=== PATIENT | male | born 1950 | race Caucasian/White ===

== ENCOUNTER 2019-03-01 10:44 | Inpatient (IN) | payer OTHER ==
[~2019-03-01] VITALS: Ht 170.2 cm; Wt 53.9 kg
[~2019-03-01 10:44] MED LIST: ASCO500 PO; CLARITIN10 MG PO; HEARTBURN RELI150 M1 PO; MONT10T PO; Monodox100 MG PO; Ventolin/Prove6.7 GM INH
[2019-03-01 11:01] LABS: BASOPHILS ABSOLUTE AUTO 0.09 K/mm3 (0.00-0.23); BASOPHILS PERCENT AUTO 1 % (0-2); EOSINOPHILS PERCENT AUTO 12 % (0-6); Hematocrit 45.1 % (37.0-53.0); Hemoglobin 14.1 g/dL (13.5-17.5); IMMATURE GRAN ABSOLUTE AUTO 0.07 K/mm3 (0.00-0.10); IMMATURE GRAN PERCENT AUTO 1 % (0-1); LYMPHOCYTES ABSOLUTE AUTO 2.62 K/mm3 (0.84-5.20); LYMPHOCYTES PERCENT AUTO 25 % (21-46); MONOCYTES PERCENT AUTO 8 % (4-13); Mean Corpuscular HGB 32.4 pg (26.0-34.0); Mean Corpuscular HGB Conc 31.3 g/dL (31.5-36.5); Mean Corpuscular Volume 104 fL (80-100); Mean Platelet Volume 8.4 fL (9.1-12.4); NEUTROPHILS ABSOLUTE AUTO 5.79 K/mm3 (1.96-9.15); NEUTROPHILS PERCENT AUTO 54 % (41-73); Platelet Count 290 K/mm3 (150-400); RDW Coefficient Variation 12.8 % (11.7-14.2); RDW Standard Deviation 49.2 fL (35.1-46.3); Red Blood Cell Count 4.35 M/mm3 (4.30-5.90); White Blood Cell Count 10.67 K/mm3 (4.00-11.30)
[2019-03-01 11:11] LABS: Bicarbonate Venous 17.5 mmol/L (24.0-30.0); PCO2 Venous 61.6 mmHg (38-42); PO2 Venous 216 mmHg (38-42); pH Blood Venous 7.14 (7.34-7.37)
[2019-03-01 11:29] LABS: Alanine Aminotransfer (ALT/SGP 31 U/L (12-78); Albumin, Blood 3.7 g/dL (3.4-5.0); Albumin/Globulin Ratio 1.1 (0.8-1.8); Alk Phos 75 U/L (50-136); Anion Gap 11 mmol/L (6-16); Aspartate Aminotrans (AST/SGOT 32 U/L (12-37); Bilirubin, Total 0.6 mg/dL (0.1-1.0); Blood Urea Nitrogen 16 mg/dL (8-24); Bun/Creatinine Ratio 17.3 (12.0-20.0); CO2, Blood 22 mmol/L (21-32); Calcium, Blood 8.6 mg/dL (8.5-10.1); Chloride, Blood 107 mmol/L (98-108); Creatinine, Blood 0.92 mg/dL (0.60-1.20); Globulin, Blood 3.4 g/dL (2.2-4.0); Glomerular Filtration Rate >60 (60-); Glucose, Blood 219 mg/dL (70-99); Potassium, Blood 4.8 mmol/L (3.5-5.5); Sodium, Blood 140 mmol/L (136-145); Total Protein, Blood 7.1 g/dL (6.4-8.2); Troponin I <0.015 ng/mL (0.000-0.040)
[2019-03-01] MEDS ORDERED: BUDE6HFA INH (12:31)
[2019-03-01] MEDS ORDERED: Flonase 0.05% N16 GM (12:33)
[2019-03-01] MEDS ORDERED: MONT10T PO (12:35)
[2019-03-01] MEDS ORDERED: Loratadine10 MG PO (12:35)
[2019-03-01] MEDS ORDERED: THERA1 EACH PO (12:36)
[2019-03-01] MEDS ORDERED: OLAN2.5 PO (12:36)
[2019-03-01] MEDS ORDERED: PARO20 PO (12:38)
[2019-03-01] MEDS ORDERED: Zantac150 MG PO (12:40)
--- NOTE | 2019-03-01 14:55 | NUR ---
ADMIT TO PCU, ROOM 12, VIA GUERNEY FROM ER. PATIENT ABLE TO SLIDE SELF FROM CART TO BED. PLACED ON BIPAP MACHINE (08/11, RATE 12 AND FIO2 30%); BIOX MID TO HIGH 90'S. OXYGEN AT 3.5L/MIN WHEN OFF BIPAP. VSS AND NO ACUTE PAIN. ORIENTED AND COOPERATIVE. PATIENT WITH CONCERNS FOR SPOUSE; HE IS HER PRIMARY CG AND WORRIED FOR HER BEING ALONE. SPOUSE ABLE TO USE PHONE AND MENTALLY SAAVY; RN SPOKE TO HER; HAS PHYSICAL DISABILITIES. SOCIAL SERVICE REFERRAL AND PALLIATIVE CARE CONSULT BY ADMITTING PHYSICIAN. PATIENTS LUNGS DIMINISHED T/O; DRY, NPC. VOIDING SMALL AMOUNT OF MEGHA COLORED URINE IN URINAL. HUNGARY AND WANTING FOOD; WATER AT BEDSIDE; ENCOURAGED NEED TO STAY ON BIPAP TIL DINNER AND THEN CAN BE OFF BIPAP; V/U.
--- NOTE | 2019-03-01 17:00 | NUR ---
DR. JIMENEZ CONSULTING; EVAL. PATIENT; LONG DISCUSSION WITH PATIENT AND FAMILY RE: HX, POC ETC.; SEE ORDERS.
--- NOTE | 2019-03-01 18:00 | NUR ---
SUMMARY: PATIENT TOLERATING DIET WELL; GOOD APPETITE. FEELING BETTER THIS EVENING; STATES HIS 'S PAID CG IS WITH HER AND WILL STAY THE NIGHT AND TOMORROW. REMAINS WITH NS INFUSING AT 75ML/HR. VOIDING SMALL AMOUNTS; 285ML/TOTAL FOR 2 VOIDS. MONITOR REMAINS NSR WITH RATE 80'S TO LOW 100'S; VSS. OVERALL STATUS IMPROVING. WILL REPORT TO ONCOMING RN.
--- NOTE | 2019-03-02 00:37 | NUR ---
RESPIRATORY STATUS 0030 PT REQUESTING TO GO TO BATHROOM. PT HAD BEEN TOLERATING BEING OFF BIPAP SINCE 190. PT ON NCO2. PT TO BATHROOM WITH NURSE ASSIST. PT STATES FEELING SOB AGAIN. PT ESCORTED BACK TO BED, SPO2 READS 75%. PT EXTREMELY DYSPNEIC. BIPAP PLACED ON PT. REMIANS ON SETTINGS /, FIO2 30%, RATE 12. PT SPO2 STILL BELOW 80%. FIO2 TITRATED TO 40%. RR >30. PT SLOWLY OVER THE COURSE OF 15 MINUTES RETURNS TO SPO2 >92%. RR 20'S. FIO2 TITRATED BACK DOWN TO 30%. PT STATES FEELING BETTER NOW. PT STATES HE UNDERSTANDS THE HNEED FOR BIPAP AND WILL TRY TO KEEP IT ON FOR THE REST OF THE NIGHT.
[2019-03-02 04:17] LABS: BASOPHILS ABSOLUTE AUTO 0.01 K/mm3 (0.00-0.23); BASOPHILS PERCENT AUTO 0 % (0-2); EOSINOPHILS PERCENT AUTO 0 % (0-6); Hematocrit 39.1 % (37.0-53.0); Hemoglobin 12.7 g/dL (13.5-17.5); IMMATURE GRAN ABSOLUTE AUTO 0.03 K/mm3 (0.00-0.10); IMMATURE GRAN PERCENT AUTO 0 % (0-1); LYMPHOCYTES ABSOLUTE AUTO 0.43 K/mm3 (0.84-5.20); LYMPHOCYTES PERCENT AUTO 5 % (21-46); MONOCYTES ABSOLUTE AUTO 0.09 K/mm3 (0.16-1.47); MONOCYTES PERCENT AUTO 1 % (4-13); Mean Corpuscular HGB 32.1 pg (26.0-34.0); Mean Corpuscular HGB Conc 32.5 g/dL (31.5-36.5); Mean Platelet Volume 8.6 fL (9.1-12.4); NEUTROPHILS ABSOLUTE AUTO 7.42 K/mm3 (1.96-9.15); NEUTROPHILS PERCENT AUTO 93 % (41-73); Platelet Count 227 K/mm3 (150-400); RDW Coefficient Variation 12.6 % (11.7-14.2); RDW Standard Deviation 45.5 fL (35.1-46.3); Red Blood Cell Count 3.96 M/mm3 (4.30-5.90); White Blood Cell Count 7.98 K/mm3 (4.00-11.30)
[2019-03-02 04:20] LABS: Mean Corpuscular Volume 99 fL (80-100)
[2019-03-02 04:31] LABS: Anion Gap 4 mmol/L (6-16); Blood Urea Nitrogen 35 mg/dL (8-24); Bun/Creatinine Ratio 37.6 (12.0-20.0); CO2, Blood 28 mmol/L (21-32); Calcium, Blood 8.3 mg/dL (8.5-10.1); Chloride, Blood 108 mmol/L (98-108); Creatinine, Blood 0.93 mg/dL (0.60-1.20); Glomerular Filtration Rate >60 (60-); Glucose, Blood 138 mg/dL (70-99); Potassium, Blood 4.6 mmol/L (3.5-5.5); Sodium, Blood 140 mmol/L (136-145)
--- NOTE | 2019-03-02 05:42 | NUR ---
END OF SHIFT SUMMARY PT ASKED TO HAVE BIPAP OFF AT BEGINNING OF SHIFT, NC 2L PLACED. PT TOLERATING WELL AT THAT TIME. UPON GETTING UP TO GO TO BATHROOM WITH NURSE, PT EXTREMELY DYSPNEIC/HYPOXIC, SEE EARLEIR NOTE. PT PLACED ON BIPAP AND HAS REMAINED ON IT SINCE AND TOLERATED WELL. SETTINGS /, FIO2 30%. SPO2 >94%. PT TO RECEIVE AM ABG TO DETERMINE RESPIRATORY STATUS. PT HAS HAD NO ACUTE CHANGES THIS SHIFT EXCEPT PERIOD OF DYSPNEA. VSS. CALL LIGHT WOTHIN REACH, USES IT APPROPRIATELY. WILL CONTINUE TO MONITOR PT UNTIL SHIFT CHANGE.
[2019-03-02 07:49] LABS: PCO2 Arterial 42.4 mmHg (35-45); PO2 Arterial 74.4 mmHg (80-100); pH Blood Arterial 7.38 (7.35-7.45)
--- NOTE | 2019-03-02 13:33 | NUR ---
Patient is lying in bed and alert. Patient fatoumata shares about his struggles of living on [address], about his 's recent foot surgery and about the concerns he has about going to a rehab facility. Patient explained that he and his Lucita are in an apartment now. Patient is hoping to go to the [facility] from upon discharge. I listen empathically and provide companionship, pastoral counselor aid and prayer (after learning about patient's belief system). Patient responded well and showed signs of reduced stress.
--- NOTE | 2019-03-02 13:41 | NUR ---
Patient is lying in bed recovering from angiogram. Patient tells me he recieved a stent. I facilitated a life review and learned of the variety of places he and his , Zenaida, have lived. I also explored their scientology beliefs which patient would describe as personal and non-conventional. I learned that he finds his deepest inspiration from his . I listened empathically, provided emotional support, companionship and prayer. Patient dmitriy Estevez responded well and showed signs of an elevated mood.
--- NOTE | 2019-03-02 18:17 | NUR ---
SHIFT SUMMARY PT A&Ox4, ANXIOUS AND COOPERATIVE WITH CARE. 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 PT RESTING IN BED DURING SHIFT, UP TO BATHROOM WITH 1 PERSON ASSIST. SOB WITH EXERTION AND AT REST AT TIMES, ON L O2 VIA NC AND BIPAP WHILE SLEEPING, LS EXP WHE, DIM BASES. PT DENIES NAUSEA, SPOUSE CONCERNED REGARD DECREASED ORAL INTAKE, PT DENIES DECREASED APPETEITE. PT REPORTS HEADACHE THIS AFTERNOON, NOTIFIED DR JUAN, NEW ORDERS FOR ASPIRIN 325MG PO Q6H PRN FOR HEADACHE, MEDICARTED X1. PT RECEIVED IV STEROIDS THIS AM. VSS. NO OTHER ACUTE CHANGES NOTED DURING SHIFT. WILL CONTINUE TO MONITOR UNTIL REPORT GIVEN TO ONCOMING RN.
--- NOTE | 2019-03-03 05:04 | NUR ---
SHIFT SUMMARY: PT IS ALERT AND ORIENTED. PT IS CALM AND COOPERATIVE WITH CARE. PT CALLS APPROPRIATELY. PT IS A ONE ASSIST, NOT OUT OF BED OVERNIGHT, USING THE URINAL IN BED INDEPENDENTLY. PT DENIES PAIN, NAUSEA, AND VOMITING. PT REPORTS SOB UPON EXERTION, SATS > 90% ON 1 L O2. PT SLEPT MUCH OF THE NIGHT WHEN NOT DISTURBED. NO ACUTE CHANGES OR COMPLICATIONS THIS SHIFT. BED IN LOW POSITION, CALL LIGHT WITHIN REACH. WILL CONTINUE TO MONITOR.
--- NOTE | 2019-03-03 09:42 | NUR ---
RT TITRATED PT TO RA. OXIMETER ALARM GOING OFF, PT 80% ON RA, PLACE 1L O2 AND ENCOURAGED PT TO TAKE SLOW DEEP BREATHS WITH PURSED LIP BREATHING, PT 90% ON 1L. WILL CONTINUE TO MONITOR.
--- NOTE | 2019-03-03 19:23 | NUR ---
SHIFT SUMMARY PT A&Ox4, FORGETFUL AT TIMES. ANXIOUS AT TIMES, BUT COOPERATIVE WITH CARE. PT RESTING IN BED DURING SHIFT. 1 PERSON ASSIST TO BATHROOM. PT REPORTS HEADACHE, MEDICATED X1 WITH ASPIRIN. PT SOB WITH EXERTION, >90% ON 1L O2 VIA NC. ATTEMTPED TO TITRATE PT TO RA TWICE DURING SHIFT, PT O2 SATURATION WOULD DESAT TO 85-86% AND WOULD RECOVER WITH BREATHING AND COUGHING. PT DENIES NAUSEA DURING SHIFT. DECREASED APPETEITE NOTED, PT STATES HE DOES NOT LIKE THE FOOD. VSS. NO OTHER ACUTE CHANGES NOTED DURING SHIFT. REPORT GIVEN TO ONCOMING RN.
--- NOTE | 2019-03-03 22:49 | NUR ---
TRANSFER NOTE: PATIENT PLEASENT AND COOPERATIVE THROUGHOUT THE NIGHT. PATIENT APPEARED TO HAVE NAPPED ON AND OFF THROUGHOUT THE NIGHT SO FAR. IV FLUIDS RUNNING PER ORDERS. REPORT GIVEN TO LEENA RUIZ. PATIENT TRANSFERED TO ROOM 324 AT THIS TIME VIA WHEELCHAIR. ALL BELONGINGS GATHERED AND SENT WITH PATIENT. KEITH NOTIFIED OF ROOM CHANGE.
--- NOTE | 2019-03-04 04:34 | NUR ---
SHIFT SUMMARY PT ARRIVED TO ROOM IN NO DISTRESS. PT HAS BEEN OFF O2 SINCE ARRIVAL AT HIS REQUEST. PT HAD NO SIGNIFICANT ISSUES WITH DYSPNEA. PT DID GET SLIGHTLY SOB AFTER GETTING UP TO USE BATHROOM. SOB RESOLVED WHEN HE LAID IN BED. PT HAD NO COMPLAINTS NOTED. PT HAS BEEN SLEEPING WELL T/O SHIFT. PT CURRENTLY AWAKE AND BREATHING EASY. CALL LIGHT IN REACH AND BED ALARM ON PT IS SLIGHTLY CONFUSED UPON WAKING UP.
[2019-03-04 04:44] LABS: PCO2 Arterial 47.4 mmHg (35-45); PO2 Arterial 55.1 mmHg (80-100); pH Blood Arterial 7.38 (7.35-7.45)
[2019-03-04 05:29] LABS: Albumin, Blood 2.8 g/dL (3.4-5.0); Anion Gap 3 mmol/L (6-16); Blood Urea Nitrogen 30 mg/dL (8-24); CO2, Blood 29 mmol/L (21-32); Calcium, Blood 8.2 mg/dL (8.5-10.1); Chloride, Blood 112 mmol/L (98-108); Creatinine, Blood 0.88 mg/dL (0.60-1.20); Glomerular Filtration Rate >60 (60-); Glucose, Blood 88 mg/dL (70-99); Phosphorus, Blood 2.7 mg/dL (2.5-4.9); Potassium, Blood 4.3 mmol/L (3.5-5.5); Sodium, Blood 144 mmol/L (136-145)
--- NOTE | 2019-03-04 18:38 | NUR ---
SHIFT SUMMARY PATIENT HAS BEEN ON ROOM AIR MUCH OF THE DAY. HE REQUIRED 1L O2 THIS AFTERNOON. HOPEFUL TO DISCHARGE HOME WITHOUT OXYGEN. FAMILY ANXIOUS REGARDING DISCHARGE PLAN AND POTENTIAL NEEDS FOR CAREGIVERS.
--- NOTE | 2019-03-05 04:06 | NUR ---
SHIFT SUMMARY PT HAD NO ISSUES WITH SOB OR REQUIRED O2 USE T/O SHIFT. PT IS EAGER TO GO HOME. PT IS CONCERNED ABOUT WELL BEING OF HIS . PT HAS SLEPT WELL T/O SHIFT. PT CURRENTLY SLEEPING AND BREATHING EASY. CALL LIGHT IN REACH.
[2019-03-05 05:33] LABS: Albumin, Blood 2.9 g/dL (3.4-5.0); Anion Gap 4 mmol/L (6-16); Blood Urea Nitrogen 31 mg/dL (8-24); Bun/Creatinine Ratio 41.7 (12.0-20.0); CO2, Blood 28 mmol/L (21-32); Calcium, Blood 8.3 mg/dL (8.5-10.1); Chloride, Blood 109 mmol/L (98-108); Creatinine, Blood 0.74 mg/dL (0.60-1.20); Glomerular Filtration Rate >60 (60-); Glucose, Blood 87 mg/dL (70-99); Phosphorus, Blood 3.1 mg/dL (2.5-4.9); Potassium, Blood 3.9 mmol/L (3.5-5.5); Sodium, Blood 141 mmol/L (136-145)
[2019-03-05] MEDS ORDERED: PRED10 PO (13:01)
--- NOTE | 2019-03-05 14:15 | NUR ---
THIS RN CALLED [facility] WHEN PATIENT DISCHARGED FROM HOSPITAL. [facility] HAD DELIVERED A TANK FOR TRANSPORT TO HOME. CONCERN OF PATIENT FORGETTING TO CALL FOR CONCENTRATOR. [facility] AWARE OF DEPART TIME TO HOME. CHRISSY FROM [facility] WILL BE GOING TO [facility] TO SET UP CONCENTRATOR.
--- NOTE | 2019-03-05 18:24 | NUR ---
DISCHARGE SUMMARY PATIENT A&O X4, INDEPENDENT IN THE ROOM. DENIES ANY PAIN OR NAUSEA. C/O SOB WITH ACTIVTY. ON RA AT REST. HOME O2 EVAL TODAY, PATIENT REQUIRES 4L O2 WITH ACTIVITY. [facility] BROUGHT O2 IN FOR DISCHARGE TO HOME. ALL DISCHARGE INSTRUCTIONS REVIEWED WITH THE PATIENT. PATIENT EDUCATION PROVIDED. IV D/C, WNL. MEDICATIONS FAXED TO [facility]. PATIENT IS TO FOLLOW UP WITH THE [facility] Wednesday03/05/19. HEAD BUYER TOBACCO ESCORTED PATIENT OUT, ALL BELONGINGS IN HAND.
== END 2019-03-05 13:57 | disposition home or self-care (01) | DRG 189 ==
LOC: ER 10:44 → ERHOLD 12:23 → PCU 12:23 → MEDS 03-03 22:52 → ENPENDDIS 03-05 11:03 → MEDS 03-05 13:57
PROVIDERS: Emergency Medicine; Internal Medicine; Internal Medicine Critical Care Medicine; ADMIT Internal Medicine
PROC: 5A09357 Assistance with Respiratory Ventilation, Less than 24 Consecutive Hours, Continuous Positive Airway Pressure (ICD-10-PCS; principal; 2019-03-01)
DX: J96.01 Acute respiratory failure with hypoxia (principal); Z77.090 Contact with and (suspected) exposure to asbestos; E78.5 Hyperlipidemia, unspecified; Z98.52 Vasectomy status; F17.210 Nicotine dependence, cigarettes, uncomplicated; R73.9 Hyperglycemia, unspecified; D75.89 Other specified diseases of blood and blood-forming organs; F41.9 Anxiety disorder, unspecified; J43.9 Emphysema, unspecified; F43.10 Post-traumatic stress disorder, unspecified; Z99.81 Dependence on supplemental oxygen; J96.02 Acute respiratory failure with hypercapnia
CPT/HCPCS: 36415; 36600; 71045; 80048; 80053; 80069; 82607; 82746; 82803; 83036; 83880; 84145; 84484; 85025; 93005; 93010; 94640; 94660; 94760; 94761; 94762; 96374; 99285-25; J1650; J2930; J7030; J7512

== ENCOUNTER 2020-05-09 18:50 | Emergency (ER) | payer OTHER ==
[~2020-05-09] VITALS: Ht 172.7 cm; Wt 65.8 kg
[~2020-05-09 18:50] MED LIST changes: +BUDE6HFA INH; +Flonase 0.05% N16 GM; +Loratadine10 MG PO; +OLAN2.5 PO; +PARO20 PO; +PRED10 PO; +THERA1 EACH PO; +Zantac150 MG PO
[2020-05-09 19:21] LABS: BASOPHILS ABSOLUTE AUTO 0.05 K/mm3 (0.00-0.23); BASOPHILS PERCENT AUTO 1 % (0-2); EOSINOPHILS ABSOLUTE AUTO 0.64 K/mm3 (0.00-0.68); EOSINOPHILS PERCENT AUTO 9 % (0-6); Hemoglobin 14.7 g/dL (13.5-17.5); IMMATURE GRAN ABSOLUTE AUTO 0.03 K/mm3 (0.00-0.10); IMMATURE GRAN PERCENT AUTO 0 % (0-1); LYMPHOCYTES ABSOLUTE AUTO 0.94 K/mm3 (0.84-5.20); LYMPHOCYTES PERCENT AUTO 13 % (21-46); MONOCYTES ABSOLUTE AUTO 0.69 K/mm3 (0.16-1.47); MONOCYTES PERCENT AUTO 9 % (4-13); Mean Corpuscular HGB 32.2 pg (26.0-34.0); Mean Corpuscular HGB Conc 32.7 g/dL (31.5-36.5); Mean Corpuscular Volume 99 fL (80-100); Mean Platelet Volume 8.3 fL (9.1-12.4); NEUTROPHILS ABSOLUTE AUTO 4.99 K/mm3 (1.96-9.15); NEUTROPHILS PERCENT AUTO 68 % (41-73); Platelet Count 268 K/mm3 (150-400); RDW Coefficient Variation 12.2 % (11.7-14.2); RDW Standard Deviation 44.2 fL (35.1-46.3); Red Blood Cell Count 4.57 M/mm3 (4.30-5.90); White Blood Cell Count 7.34 K/mm3 (4.00-11.30)
[2020-05-09 19:42] LABS: Alanine Aminotransfer (ALT/SGP 16 U/L (12-78); Albumin, Blood 3.3 g/dL (3.4-5.0); Albumin/Globulin Ratio 0.8 (0.8-1.8); Alk Phos 75 U/L (50-136); Anion Gap 5 mmol/L (6-16); Aspartate Aminotrans (AST/SGOT 21 U/L (12-37); Bilirubin, Total 0.6 mg/dL (0.1-1.0); Blood Urea Nitrogen 28 mg/dL (8-24); Bun/Creatinine Ratio 38.1 (12.0-20.0); CO2, Blood 27 mmol/L (21-32); Calcium, Blood 8.8 mg/dL (8.5-10.1); Chloride, Blood 105 mmol/L (98-108); Creatinine, Blood 0.73 mg/dL (0.60-1.20); Globulin, Blood 3.9 g/dL (2.2-4.0); Glomerular Filtration Rate >60 (60-); Glucose, Blood 76 mg/dL (70-99); Potassium, Blood 4.1 mmol/L (3.5-5.5); Sodium, Blood 137 mmol/L (136-145); Total Protein, Blood 7.2 g/dL (6.4-8.2); Troponin I <0.015 ng/mL (0.000-0.040)
[2020-05-09] MEDS ORDERED: Prednisone50 MG PO (20:12)
[2020-05-09] MEDS ORDERED: Ventolin/Prove6.7 GM INH (20:12)
[2020-05-09] MEDS ORDERED: SYMBICORT 16010.2 GM INH (20:12)
== END 2020-05-10 00:33 | disposition home or self-care (01) ==
LOC: ER 18:50
PROVIDERS: Emergency Medicine
DX: J44.1 Chronic obstructive pulmonary disease with (acute) exacerbation (principal); F17.210 Nicotine dependence, cigarettes, uncomplicated; F17.290 Nicotine dependence, other tobacco product, uncomplicated; Z88.6 Allergy status to analgesic agent; Z79.51 Long term (current) use of inhaled steroids; Z79.899 Other long term (current) drug therapy; Z79.52 Long term (current) use of systemic steroids
CPT/HCPCS: 36415; 71045; 80053; 84484; 85025; 93005; 93010; 94640; 99285-25; J7512

== ENCOUNTER 2020-05-13 18:54 | Observation (INO) | payer OTHER ==
[~2020-05-13] VITALS: Ht 172.7 cm; Wt 59.0 kg
[~2020-05-13 18:54] MED LIST changes: +Prednisone50 MG PO; +SYMBICORT 16010.2 GM INH
[2020-05-13 19:28] LABS: BASOPHILS ABSOLUTE AUTO 0.07 K/mm3 (0.00-0.23); BASOPHILS PERCENT AUTO 1 % (0-2); EOSINOPHILS ABSOLUTE AUTO 0.54 K/mm3 (0.00-0.68); EOSINOPHILS PERCENT AUTO 7 % (0-6); Hematocrit 44.7 % (37.0-53.0); Hemoglobin 14.6 g/dL (13.5-17.5); IMMATURE GRAN ABSOLUTE AUTO 0.01 K/mm3 (0.00-0.10); IMMATURE GRAN PERCENT AUTO 0 % (0-1); LYMPHOCYTES ABSOLUTE AUTO 0.93 K/mm3 (0.84-5.20); LYMPHOCYTES PERCENT AUTO 12 % (21-46); MONOCYTES ABSOLUTE AUTO 1.05 K/mm3 (0.16-1.47); MONOCYTES PERCENT AUTO 13 % (4-13); Mean Corpuscular HGB 31.9 pg (26.0-34.0); Mean Corpuscular HGB Conc 32.7 g/dL (31.5-36.5); Mean Corpuscular Volume 98 fL (80-100); Mean Platelet Volume 8.4 fL (9.1-12.4); NEUTROPHILS ABSOLUTE AUTO 5.27 K/mm3 (1.96-9.15); NEUTROPHILS PERCENT AUTO 67 % (41-73); Platelet Count 304 K/mm3 (150-400); RDW Coefficient Variation 12.2 % (11.7-14.2); RDW Standard Deviation 43.8 fL (35.1-46.3); Red Blood Cell Count 4.58 M/mm3 (4.30-5.90); White Blood Cell Count 7.87 K/mm3 (4.00-11.30)
[2020-05-13 19:52] LABS: Alanine Aminotransfer (ALT/SGP 15 U/L (12-78); Albumin, Blood 3.4 g/dL (3.4-5.0); Albumin/Globulin Ratio 0.8 (0.8-1.8); Alk Phos 74 U/L (50-136); Anion Gap 4 mmol/L (6-16); Aspartate Aminotrans (AST/SGOT 15 U/L (12-37); Bilirubin, Total 0.6 mg/dL (0.1-1.0); Blood Urea Nitrogen 52 mg/dL (8-24); CO2, Blood 27 mmol/L (21-32); Calcium, Blood 9.5 mg/dL (8.5-10.1); Chloride, Blood 109 mmol/L (98-108); Creatinine, Blood 1.02 mg/dL (0.60-1.20); Glomerular Filtration Rate >60 (60-); Glucose, Blood 107 mg/dL (70-99); Potassium, Blood 4.2 mmol/L (3.5-5.5); Sodium, Blood 140 mmol/L (136-145); Total Protein, Blood 7.4 g/dL (6.4-8.2); Troponin I <0.015 ng/mL (0.000-0.040)
[2020-05-14 07:55] LABS: BASOPHILS ABSOLUTE AUTO 0.02 K/mm3 (0.00-0.23); BASOPHILS PERCENT AUTO 0 % (0-2); EOSINOPHILS ABSOLUTE AUTO 0.01 K/mm3 (0.00-0.68); EOSINOPHILS PERCENT AUTO 0 % (0-6); Hematocrit 43.5 % (37.0-53.0); Hemoglobin 13.9 g/dL (13.5-17.5); IMMATURE GRAN ABSOLUTE AUTO 0.03 K/mm3 (0.00-0.10); IMMATURE GRAN PERCENT AUTO 1 % (0-1); LYMPHOCYTES ABSOLUTE AUTO 0.33 K/mm3 (0.84-5.20); LYMPHOCYTES PERCENT AUTO 7 % (21-46); MONOCYTES ABSOLUTE AUTO 0.04 K/mm3 (0.16-1.47); MONOCYTES PERCENT AUTO 1 % (4-13); Mean Corpuscular HGB 32.1 pg (26.0-34.0); Mean Corpuscular Volume 101 fL (80-100); Mean Platelet Volume 8.4 fL (9.1-12.4); NEUTROPHILS ABSOLUTE AUTO 4.11 K/mm3 (1.96-9.15); NEUTROPHILS PERCENT AUTO 91 % (41-73); Platelet Count 209 K/mm3 (150-400); RDW Coefficient Variation 12.3 % (11.7-14.2); Red Blood Cell Count 4.33 M/mm3 (4.30-5.90); White Blood Cell Count 4.54 K/mm3 (4.00-11.30)
[2020-05-14 08:15] LABS: Alanine Aminotransfer (ALT/SGP 17 U/L (12-78); Albumin, Blood 3.1 g/dL (3.4-5.0); Albumin/Globulin Ratio 0.8 (0.8-1.8); Alk Phos 67 U/L (50-136); Anion Gap 7 mmol/L (6-16); Aspartate Aminotrans (AST/SGOT 13 U/L (12-37); Bilirubin, Total 0.5 mg/dL (0.1-1.0); Blood Urea Nitrogen 35 mg/dL (8-24); CO2, Blood 22 mmol/L (21-32); Calcium, Blood 8.4 mg/dL (8.5-10.1); Chloride, Blood 111 mmol/L (98-108); Creatinine, Blood 0.92 mg/dL (0.60-1.20); Globulin, Blood 3.9 g/dL (2.2-4.0); Glomerular Filtration Rate >60 (60-); Glucose, Blood 117 mg/dL (70-99); Potassium, Blood 4.9 mmol/L (3.5-5.5); Sodium, Blood 140 mmol/L (136-145)
[2020-05-14] MEDS ORDERED: FAMO20 PO (11:42)
[2020-05-14] MEDS ORDERED: SYMBICORT 160-4.6 GM INH (11:43)
--- NOTE | 2020-05-14 17:30 | NUR ---
NEW ER ADMIT THIS AFTERNNON ARRIVE TO RM APPROX 1500. DX COPD EXAC. HE STATE NO SOB @ REST, HOWEVER PURSED LIP BREATHING NOTED. BIOX 93% RA. STATE SOB HAS IMPROVED FOLLOWING ER TX. HE IS A/O X2, FORGETFUL, @ X'S MAKES BIZZARE STATEMNTS. BED ALARM IN USE. DR MANCIA IN TO SEE HIM, D/C NPO STATUS, PT PROVIDED FLUIDS & SNACK, 2G NA+ DINNER PROVIDED. REQUESTS O2 @ 1/2L, WILL CHECK ABG IN AM.
--- NOTE | 2020-05-15 04:12 | NUR ---
SHIFT SUMMARY ASSUMED CARE OF PT AT 1900. PT IS A/OX2, PT SAYS INAPPROPIATE WORDS/PHRASES DURING CONVERSATIONS AND IS FORGETFUL, DENIES N/T IN EXTREMITES. HEART SOUNDS REGULAR, TELE SHOWS SINUS W/ BBB @ 66, DENIES CP. LUNG SOUNDS DIMINISHED, PT USES PURSED LIP BREATHING, FAMILY STATED THIS WAS PT NORMAL. PT REMAINED ON 0.5L NC PER DOCTORS ORDERS, SATURATIONS ABOVE 90%. PT WAS CONTINENT T/O THE NIGHT, POST VOID BLADDER SCAN SHOWS 16ML. NO ACUTE EVENTS DURING THE NIGHT. PT SLEPT T/O THE NIGHT. CALL LIGHT IN REACH, BED IN LOWEST POSITION, BED ALARM ON, WILL CONTINUE TO MONITOR.
[2020-05-15 05:10] LABS: PO2 Arterial 65.7 mmHg (80-100); pH Blood Arterial 7.42 (7.35-7.45)
[2020-05-15 05:22] LABS: BASOPHILS PERCENT AUTO 0 % (0-2); EOSINOPHILS PERCENT AUTO 0 % (0-6); IMMATURE GRAN ABSOLUTE AUTO 0.02 K/mm3 (0.00-0.10); IMMATURE GRAN PERCENT AUTO 0 % (0-1); LYMPHOCYTES ABSOLUTE AUTO 0.32 K/mm3 (0.84-5.20); LYMPHOCYTES PERCENT AUTO 6 % (21-46); MONOCYTES PERCENT AUTO 3 % (4-13); Mean Corpuscular HGB 31.4 pg (26.0-34.0); Mean Corpuscular HGB Conc 32.5 g/dL (31.5-36.5); Mean Corpuscular Volume 97 fL (80-100); Mean Platelet Volume 8.6 fL (9.1-12.4); NEUTROPHILS ABSOLUTE AUTO 5.28 K/mm3 (1.96-9.15); NEUTROPHILS PERCENT AUTO 91 % (41-73); Platelet Count 246 K/mm3 (150-400); RDW Coefficient Variation 12.2 % (11.7-14.2); Red Blood Cell Count 4.14 M/mm3 (4.30-5.90); White Blood Cell Count 5.82 K/mm3 (4.00-11.30)
[2020-05-15 06:16] LABS: Anion Gap 9 mmol/L (6-16); Blood Urea Nitrogen 28 mg/dL (8-24); CO2, Blood 22 mmol/L (21-32); Calcium, Blood 8.7 mg/dL (8.5-10.1); Chloride, Blood 110 mmol/L (98-108); Creatinine, Blood 0.87 mg/dL (0.60-1.20); Glomerular Filtration Rate >60 (60-); Glucose, Blood 142 mg/dL (70-99); Potassium, Blood 4.3 mmol/L (3.5-5.5); Sodium, Blood 141 mmol/L (136-145)
[2020-05-15] MEDS ORDERED: FLUTICASONE-SA1 EAC2 INH (09:23)
[2020-05-15] MEDS ORDERED: SEEBRI NEOHA15.6 MC1 INH (09:24)
[2020-05-15] MEDS ORDERED: PRED20 PO (09:24)
[2020-05-15] MEDS ORDERED: NICO21TP TOP (09:25)
--- NOTE | 2020-05-15 13:11 | NUR ---
PATIENT DISCHARGED TO HOME, IV SALINE LOCK REMOVED WITHOUT INCIDENT. PT EDUCATED TO STOP SMOKING AND TO START USING NICOTINE PATCHES PRESCRIBED. VERBALIZED UNDERSTANDING THAT HE HAS NEW MEDICATIONS TO BE PICKED UP AT [facility], AND THAT HE NEEDS TO MAKE F/U APPT WITH PCP WITHIN ONE WEEK. TAKEN OUTSIDE TO SON'S CAR VIA W/C.
[2020-05-16] MEDS ORDERED: HYDHCL25 PO (17:22)
== END 2020-05-15 13:05 | disposition home or self-care (01) ==
LOC: ER 18:54 → ERHOLD 18:55 → MEDS 18:55 → ERHOLD 18:55 → MEDS 05-14 14:31
PROVIDERS: Emergency Medicine; Internal Medicine; ADMIT Internal Medicine
DX: J96.01 Acute respiratory failure with hypoxia (principal); J43.9 Emphysema, unspecified; F41.9 Anxiety disorder, unspecified; F03.90 Unspecified dementia, unspecified severity, without behavioral disturbance, psychotic disturbance, mood disturbance, and anxiety; E86.0 Dehydration; I95.9 Hypotension, unspecified; E43 Unspecified severe protein-calorie malnutrition; E78.5 Hyperlipidemia, unspecified; Z79.899 Other long term (current) drug therapy; J61 Pneumoconiosis due to asbestos and other mineral fibers; Z88.6 Allergy status to analgesic agent; F17.210 Nicotine dependence, cigarettes, uncomplicated; F17.290 Nicotine dependence, other tobacco product, uncomplicated; J45.909 Unspecified asthma, uncomplicated; Z79.51 Long term (current) use of inhaled steroids
CPT/HCPCS: 36415; 36600; 71045; 71260; 80048; 80053; 82803; 83880; 84484; 85025; 85379; 93005; 93010; 94640; 94664; 94667; 94668; 94760; 96360; 96361; 96372; 96374; 96376; 97110; 97161; 97165; 97535; 98960; 99285-25; G0378; J1650; J2930; J7030; Q9967